=== PATIENT | female | born 1965 | race Two or more races ===

== ENCOUNTER → 2016-11-15 | Emergency (ER) | payer OTHER ==
[~2016-11-15] VITALS: Ht 165.1 cm; Wt 56.7 kg
[~2016-11-15] MED LIST: LORazepam Inj 2mg/ml 1ml IV ONE
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
[2016-11-15 19:15] VITALS: BP 128/74
[2016-11-15 19:25] LABS: BASOPHILS % (AUTO) 0.6 % (0.0-2.0); EOSINOPHILS % (AUTO) 0.4 % (0.0-3.0); LYMPHOCYTES % (AUTO) 12.2 % (20.0-45.0); MEAN CORPUSCULAR HGB CONC 33.8 G/DL (32.0-36.0); MEAN CORPUSCULAR VOLUME 95 FL (80-99); MEAN PLATELET VOLUME 9.7 FL (6.5-10.1); MONOCYTES % (AUTO) 5.5 % (1.0-10.0); NEUTROPHILS % (AUTO) 81.3 % (45.0-75.0); PLATELET COUNT 165 K/UL (150-450); RED BLOOD COUNT 4.35 M/UL (4.20-5.40); RED CELL DISTRIBUTION WIDTH 12.3 % (11.6-14.8); WHITE BLOOD COUNT 11.4 K/UL (4.8-10.8)
[2016-11-15 19:45] LABS: ACETAMINOPHEN < 10 ug/mL (10-30)
[2016-11-15 19:46] LABS: ALANINE AMINOTRANSFERASE 9 U/L (3-33); ALBUMIN/GLOBULIN RATIO 1.3 (1.0-2.7); ALCOHOL < 10 mg/dL; ANION GAP 14 (5-15); ASPARTATE AMINO TRANSFERASE 15 U/L (5-40); CALCIUM 8.8 mg/dL (8.6-10.2); CARBON DIOXIDE 23 mEQ/L (20-30); CHLORIDE 101 mEQ/L (98-107); CREATININE 0.6 mg/dL (0.5-0.9); GLOMERULAR FILTRATION RATE > 60 mL/min (>60); HEMOLYSIS 4; POTASSIUM 3.8 mEQ/L (3.4-4.9); SODIUM 138 mEQ/L (135-145); TOTAL PROTEIN 7.3 g/dL (6.6-8.7)
[2016-11-15 21:00] VITALS: BP 131/75
--- NOTE | 2016-11-16 10:28 | Diagnostic Imaging Report ---
Indication: Headache Technique: Contiguous 5 mm thick transaxial imaging of the head obtained in a Siemens Sensation [address] scanner. Soft tissue and bone windows generated. Total Dose length Product (DLP): [address] Dose Index Volume (CTDIvol): 70.38 mGy Comparison: none Findings: The size and configuration of the cortical sulci, basal cisterns, and ventricles are within normal limits for age. There is no mass effect, midline shift, or edema identified. There is no evidence of acute hemorrhage or abnormal intra-axial or extra-axial fluid collections. The bones and soft tissues are unremarkable. Impression: No mass effect, edema or acute bleed. [facility] has communicated the preliminary results to the Emergency Department. Their findings are largely concordant with this report. The CT scanner at [facility] is accredited by the [employer] and the scans are performed using dose optimization techniques as appropriate to a performed exam including Automatic Exposure control.
== END | disposition home or self-care (01) ==
LOC: EDBD 18:21 → EMR 18:45
DX: F68.8 Other specified disorders of adult personality and behavior (principal); R51 Headache
CPT/HCPCS: 36415; 70450; 80053; 80329; 85025; 87040; 96360; 96374

== ENCOUNTER 2018-08-19 18:38 | Emergency (ER) | payer OTHER ==
[~2018-08-19] VITALS: Ht 175.3 cm; Wt 56.7 kg
[2018-08-19] MEDS ORDERED: NKM (18:49)
--- NOTE | 2018-08-19 19:14 | NUR ---
ED Nurse Note:pt. had bilateral big toe nails surgically removed and she came to ER to removed stocked bandagies
--- NOTE | 2018-08-19 19:18 | NUR ---
HAND-OFF: Report given to Pratibha.
[2018-08-19] MEDS ORDERED: HYDROcodone/Acetamin 5/325 tab ORAL ONE (19:30)
[2018-08-19] MEDS ORDERED: Hydrogen Peroxide 473ml Bottle TOPIC ONE (19:45)
--- NOTE | 2018-08-19 19:54 | Emergency Room Report ---
History of Present Illness General Chief Complaint: Lower Extremity Injury Source: Patient Present Illness HPI 53-year-old female presents to the emergency department requesting assistance of bandage removal/dressing change status post I lateral great toenail removal 2 days ago. Patient reports currently pain as 5 out of 10 in severity however attempts to remove bandages she has exacerbations up to 10 out of 10 in severity. Patient denies fevers, chills, persistent bleeding or notable discharge. Reports multiple attempts of soaking her feet in warm water without successfully being able to remove the bandages. She denies any other symptoms or medical complaints she denies any other modifying factors. Allergies: Coded Allergies: No Known Allergies (Unverified , 08/19/18) Patient History Past Medical History: see triage record Past Surgical History: none Pertinent Family History: none Last Menstrual Period: 4 MONTHS AGO Now: No Reviewed Nursing Documentation: PMH: Agreed; PSxH: Agreed Nursing Documentation-PM Past Medical History: No Stated History Review of Systems All Other Systems: negative except mentioned in HPI Physical Exam Vital Signs Date Time Temp Pulse Resp B/P (MAP) Pulse Ox O2 Delivery O2 Flow Rate FiO2 08/19/18 18:43 98.2 90 18 99 Room Air Sp02 EP Interpretation: reviewed, normal General Appearance: alert, GCS 15, non-toxic, mild distress Head: normocephalic, atraumatic Eyes: bilateral eye normal inspection, bilateral eye PERRL ENT: hearing grossly normal, normal voice Neck: full range of motion Respiratory: lungs clear, normal breath sounds, speaking full sentences Cardiovascular #1: regular rate, rhythm Cardiovascular #2: 2+ dorsalis pedis (R), 2+ dorsalis pedis (L) Musculoskeletal: back normal, gait/station normal, normal range of motion, tender - TTP to the nailbeds of the great toe bilaterally. Neurologic: alert, oriented x3, responsive, motor strength/tone normal, sensory intact, speech normal, grossly normal Psychiatric: judgement/insight normal Skin: normal color, no rash, warm/dry, well hydrated, other - severe ttp to the nailbeds of the great toes bilaterally, no nails/surgically removed. no bleeding at this time. Medical Decision Making PA Attestation Dr. roberts is my supervising Physician whom patient management has been discussed with. Diagnostic Impression: Primary Impression: Dressing change or removal, surgical wound ER Course 53-year-old female presents to the emergency department requesting assistance of bandage removal/dressing change status post I lateral great toenail removal 2 days ago. Patient reports currently pain as 5 out of 10 in severity however attempts to remove bandages she has exacerbations up to 10 out of 10 in severity. Patient denies fevers, chills, persistent bleeding or notable discharge. Reports multiple attempts of soaking her feet in warm water without successfully being able to remove the bandages. She denies any other symptoms or medical complaints she denies any other modifying factors. Ddx considered but are not limited to normal healing post surgical wound, cellulitis, persistent bleeding just to name a few. Vital signs: are WNL, pt. is afebrile H&PE are most consistent with Need for dressing removal and change ORDERS: none required at this time, the diagnosis is clinical ED INTERVENTIONS: -[place] PO -Dressing change by dress fitter and RN. DISCHARGE: At this time pt. is stable for d/c to home. Will provide printed patient care instructions, and any necessary prescriptions. Care plan and follow up instructions have been discussed with the patient prior to discharge. Last Vital Signs Date Time Temp Pulse Resp B/P (MAP) Pulse Ox O2 Delivery O2 Flow Rate FiO2 08/19/18 18:43 98.2 90 18 99 Room Air Status: improved Disposition: HOME, SELF-CARE Condition: Stable Scripts Hydrocodone Bit/Acetaminophen 5-325* (NORCO 5-325*) 1 Each Tablet 1 TAB ORAL Q6H PRN for For Pain, #10 TAB 0 Refills Prov: Merari Teresa 08/19/18 Patient Instructions: Wound Check Additional Instructions: Take any previously prescribed medications as directed. Follow up with a Primary Care Provider in 3-5 days, even if your symptoms have resolved. Return sooner to ED if new symptoms occur, or current symptoms become worse. - Please note that this Emergency Department Report was dictated using [employer]ann[employer] truck driver technology software, occasionally this can lead to erroneous entry secondary to interpretation by the dictation equipment. Merari Teresa August 19, 2018 19:54
[2018-08-19] MEDS ORDERED: NORCO 5-325 TA1 EACH ORAL (20:27)
[2018-08-19 20:52] VITALS: BP 121/79
--- NOTE | 2018-08-19 20:53 | NUR ---
ER DISCHARGE NOTE: Patient is cleared to be discharged per ERMD, pt is aox4, on room air, with stable vital signs. pt was given dc and prescription instructions, pt was able to verbalize understanding, pt id band removed. pt is able to ambulate with steady gait. pt took all belongings. toes dressed
== END 2018-08-19 20:55 | disposition home or self-care (01) ==
LOC: EMR 19:21
DX: M79.675 Pain in left toe(s) (principal); M79.674 Pain in right toe(s)
CPT/HCPCS: 99281